=== PATIENT | female | born 1955 | race Caucasian/White ===

== ENCOUNTER 2017-04-20 11:49 | Inpatient (IN) ==
[2017-04-20] MEDS ORDERED: DUONEB (A & A) INH ONE (15:00)
--- NOTE | 2017-04-20 15:19 | Diag Imaging Result Doc PS360 ---
EXAM: CHEST-2 VIEWS HISTORY: dyspnea TECHNIQUE: PA and lateral COMMENT: There is COPD. There are multiple bilateral pulmonary nodules with a large cavitary mass in the left apex. These findings were also present on 12/21/2016. There has been no appreciable change. IMPRESSION: Left upper lobe mass and metastatic disease. COPD. Electronically signed by Mike Piña 04/20/2017 3:17 PM
[2017-04-20 15:26] LABS: MANUAL DIFF NEEDED? NO
[2017-04-20 15:32] LABS: BASO% 0.8 % (0.0-0.8); EOS# 0.09 X1000 (0.0-0.7); EOS% 1.5 % (0.0-10.0); HEMATOCRIT 36.1 % (37.0-47.0); HEMOGLOBIN 11.2 g/dL (12.0-16.0); LYMPH# 1.95 X1000 (1.2-3.4); LYMPH% 32.7 % (20.5-51.1); MCH 25.7 PG (27-31); MONO# 0.56 X1000 (0.11-0.59); MONO% 9.4 % (1.7-9.3); MPV 10.1 FL (7.4-10.4); NEUT% 55.6 % (42.2-75.2); PLT 419 X1000 (130-400); RBC 4.35 XMIL (4.2-5.4)
--- NOTE | 2017-04-20 15:35 | PROVIDER DOCUMENTATION ---
HPI-Respiratory General - General Chief Complaint: Cough Stated Complaint: SOB Time Seen by Provider: 04/20/17 13:09 Source: patient, family Allergies/Adverse Reactions: Patient Allergies Allergy/AdvReac Type Severity Reaction Status Date / Time hydrocodone Allergy NAUSEA Verified 12/21/16 09:18 Home Medications: Home Medication List Medication Instructions Recorded Confirmed Last Taken Type Gabapentin [Neurontin] 300 mg PO BID 05/13/16 12/21/16 12/20/16 History Glipizide 10 mg PO BID 05/13/16 12/21/16 12/20/16 History Levothyroxine [Synthroid] 100 microgm PO DAILY 05/13/16 12/21/16 12/20/16 History Metformin [Glucophage] 1,000 mg PO BID 05/13/16 12/21/16 12/20/16 History Omeprazole [Prilosec] 20 mg PO DAILY@0700 05/13/16 12/21/16 12/20/16 History Propranolol L.a. [Inderal LA] 1 tab PO DAILY 05/13/16 12/21/16 12/20/16 History Simvastatin [Zocor] 80 mg PO HS 05/13/16 12/21/16 12/20/16 History Tiotropium [place] Inhaler 2 puff INH DAILY 05/13/16 12/21/16 12/20/16 History [Spiriva] Ferrous Sulfate [Iron] 27 mg PO DAILY 12/15/16 12/21/16 12/20/16 History Acetaminophen with Codeine 1 each PO Q8H PRN PRN #10 tablet 12/21/16 Unknown Rx [Tylenol with Codeine #3] Azithromycin [Zithromax Z-Ari] 250 mg PO DIRECTED #1 pkg 12/21/16 Unknown Rx Insulin Detemir [Levemir] 40 unit SUBQ DAILY 12/21/16 12/21/16 12/20/16 History Methylprednisolone [Medrol Dosepak] 4 mg PO DIRECTED #1 package 12/21/16 Unknown Rx - History of Present Illness-Resp Nature of Presenting Problem: 62 y/o WF witha PMHx of lung mass, COPD and IDDM that presents to the ER with a one week h/o SOB and productive cough. Sputum is stated to be green in color. Pt reports no aggravating or alleviating factors. ROS is non-contributory. Quality of Pain: reports: none Severity in ED: reports: mild Onset/Duration: reports: 1 week ago Timing: reports: intermittent Cough Quality/Degree: reports: productive cough Episode Frequency: occasional episodes Modifying Factors: improves with: nothing Associated Symptoms: reports: denies symptoms Similar Symptoms Previously?: Yes Review of Systems - Adult - REVIEW OF SYSTEMS - ADULT Constitutional: reports: no symptoms reported Eyes: reports: no symptoms reported Ears, Nose, Mouth & Throat: reports: no symptoms reported Cardiovascular: reports: no symptoms reported Respiratory: reports: cough, shortness of breath Gastrointestinal: reports: no symptoms reported Genitourinary: reports: no symptoms reported Musculoskeletal: reports: no symptoms reported Integumentary: reports: no symptoms reported Neurological: reports: no symptoms reported Psychiatric: reports: no symptoms reported Endocrine: reports: no symptoms reported Hematologic/Lymphatic: reports: no symptoms reported Allergic/Immunologic: reports: no symptoms reported Past History - Adult - PAST MEDICAL HISTORY-ADULT Review of Records: reports: Old Records Reviewed, Nursing Assessment Review, Medications Reviewed Cardiovascular: reports: hyperlipidemia Respiratory: reports: COPD, other (emphysema) Neurological: reports: dementia Endocrine/Immune: reports: thyroid disorder - PRIOR SURGERIES/PROCEDURES Surgical/Procedure History: reports: hysterectomy, other (lung bx) - IMMUNIZATION STATUS Childhood Immunizations: See Nurse Assessment Flu Vaccine: See Nurse Assessment - FAMILY HISTORY Family History: reviewed, not pertinent - SOCIAL HISTORY Smoking: cigarettes, less than 1 pack/day Substance Use: none/never Alcohol Use Frequency: never Physical Exam-General - PHYSICAL EXAM-ADULT Initial Vital Signs Reviewed: Yes - CONSTITUTIONAL General Appearance: appears well, alert. negative: lethargic, obtunded - EYES Eyes: PERRL/EOMI, pink conjunctivae. negative: sclera injected, scleral icterus - HEAD, EARS, NOSE, MOUTH & THROAT HENMT: normocephalic/atraumatic, moist mucous membranes. negative: pharyngeal erythema, tonsillar exudate - NECK Neck: non-tender, full range of motion, supple. negative: C-spine tenderness - RESPIRATORY Respiratory: chest non-tender, lungs clear, normal breath sounds. negative: crackles, rales, rhonchi, stridor, wheezing - CARDIOVASCULAR Cardiovascular: normal peripheral pulses, regular rate, rhythm, no murmur - GASTROINTESTINAL (ABDOMEN) Abdominal Exam: normal bowel sounds, non tender, soft. negative: distended, guarding, rigid, rebound, tenderness - LYMPHATIC Lymphatic: no adenopathy - MUSCULOSKELETAL Back Exam: normal inspection, no CVA tenderness, no vertebral tenderness. negative: muscle spasm, swelling Extremity: normal range of motion, non-tender. negative: swelling, tenderness - SKIN Integumentary: normal color, normal turgor, warm/dry. 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 negative: focal weakness , motor weakness - PSYCHIATRIC Psych/Mental Status: normal mood/affect, normal thought content, normal thought process, oriented x 3. negative: anxious, disheveled, paranoid, tearful Progress - PLAN OF CARE/RESULTS Progress/Plan/Lab Results: Vital Signs - 8 hr 04/20/17 11:51 04/20/17 17:11 04/20/17 17:44 Temperature 98.6 F 97.6 F Pulse Rate 88 88 65 Respiratory Rate 20 20 18 Blood Pressure 149/67 163/72 O2 Sat by Pulse Oximetry 99 98 100 Laboratory Results - last 24 hr 04/20/17 04/20/17 15:20 15:20 WBC 5.96 RBC 4.35 Hgb 11.2 L Hct 36.1 L MCV 83.0 MCH 25.7 L MCHC 31.0 L RDW Std Deviation 18.2 H Plt Count 419 H MPV 10.1 Immature Gran % (Auto) 0.0 Neut % (Auto) 55.6 Lymph % (Auto) 32.7 [place] % (Auto) 9.4 H Eos % (Auto) 1.5 Baso % (Auto) 0.8 Immature Gran # (Auto) 0.00 Neut # (Auto) 3.31 Lymph # (Auto) 1.95 [place] # (Auto) 0.56 Eos # (Auto) 0.09 Baso # (Auto) 0.05 Sodium 141 Potassium 4.2 Chloride 99 Carbon Dioxide 32 Anion Gap 10 BUN 12 Creatinine 0.5 Estimated GFR/1.73 m2 > 60 BUN/Creatinine Ratio 24 Glucose 63 L Calculated Osmolality 279 Calcium 9.8 Total Bilirubin < 0.10 L AST 11 ALT 8 L Alkaline Phosphatase 46 Total Protein 7.6 Albumin 4.5 Globulin 3.1 Albumin/Globulin Ratio 1.5 Orders Category Date Time Status Oxygen Therapy- ED Nursing DIRECTED Care 04/20/17 15:00 Active Saline Loc DIRECTED Care 04/20/17 15:00 Active CHEST-2 VIEWS [RAD] Stat Exams 04/20/17 15:01 Completed THORAX/ABDOMEN/PELVIS [CT] Stat Exams 04/20/17 15:45 Completed CBC WITH ELECTRONIC DIFF [HEME] Stat Lab 04/20/17 15:20 Completed COMPREHENSIVE METABOLIC PANEL [CHEM] Stat Lab 04/20/17 15:20 Completed Albuterol 2.5MG/Ipratrop 0.5MG [Duoneb (A & A)] Med 04/20/17 15:00 Discontinued 3 ml INH NOW ONE Aerosol Treatments Routine Oth 04/20/17 15:00 Completed Aerosol Treatments Stat Oth 04/20/17 15:00 Completed Aerosol Treatments Stat Oth 04/20/17 15:00 Completed Pulse Oximetry Stat Oth 04/20/17 15:00 Completed Result Diagrams: 04/20/17 15:20 04/20/17 15:20 - CT/MRI 1 CT Study: Abdomen, Pelvis, Thorax Impression: Abnormal (Cavitary mass in upper left lobe which has increased in size somewhat. Now with disseminated pulmonary nodules, which questions diagnosis of granulomatous process from bios on 12/15/16. Differential diagnosis includes septic emboli, disseminated granulomatous diseas, or even metastatic disease.) - CONSULTS/PCP/HOSPITALIST Notification #1 *Consult/PCP/Hospitalist*: Dr. Cochran Time Discussed: 18:06 Consult Disposition: Admit (per PSYCHOLOGIST ENGINEERING) Departure - Departure Date of Disposition Decision: 04/20/17 Time of Disposition Decision: 18:05 DIAGNOSIS: Lung mass, Hypoxemia requiring supplemental oxygen Disposition: ADMITTED INPATIENT 09 Certified Medical Emergency: Emergent Condition: Good Referrals and Follow-Ups: None,PCP [Primary Care Provider] - - Critical Care Note This patient required my direct & personal management of CC.: No
[2017-04-20 15:45] LABS: AGAP 10; ALBUMIN 4.5 g/dL (3.5-5.0); ALKALINE PHOSPHATASE 46 U/L (32-104); BUN 12 mg/dL (8-22); CALCIUM 9.8 mg/dL (8.8-10.2); CHLORIDE 99 mmol/L (98-107); COSMO 279; GOT 11 U/L (10-30); GPT 8 U/L (10-36); POTASSIUM 4.2 mmol/L (3.5-5.1); SODIUM 141 mmol/L (136-145); TCO2 32 mmol/L (25-35); TOTAL BILIRUBIN < 0.10 mg/dL (0.20-1.00); TOTAL PROTEIN 7.6 g/dL (6.3-8.3)
--- NOTE | 2017-04-20 17:24 | Diag Imaging Result Doc PS360 ---
EXAM: THORAX/ABDOMEN/PELVIS HISTORY: lung mass TECHNIQUE: CT of the chest with and without contrast; CT of the abdomen and pelvis with intravenous contrast, dose reduction (clarity.) COMMENT: CT of the chest: The current study is compared with that of 12/10/2016. There is a cavitary lesion present in the left upper lobe posteriorly. This was also present on 12/10/2016 but is slightly larger now measuring 5.1 cm in transverse dimension compared to 4.9 cm previously. This abuts the posterior pleura and there may be a loculated pleural fluid collection associated with this. There are a few air bubbles associated with the fluid collection than on the previous study. This lesion was also biopsied previously on 12/15/2016, the results of which indicate a necrotizing granulomatous process. There is generalized emphysematous change. There are numerous bilateral pulmonary nodules. One of the larger is in the right middle lobe laterally on image 68. This was not present at the time the previous study. It measures 11 mm in AP dimension. There are some calcified lesions which have not changed. There is a nodule in the right lower lobe on image 65 which nearly abuts the pleura and measures slightly less than a centimeter in diameter. This was not present on the previous study. There is a pleural-based lesion posteriorly in the left lower lobe on image 66 and 67 which was not present previously. Numerous smaller lesions were not present on the previous examination. There are extensive coronary calcifications. There are calcified nodes in the subcarina and right hilum. No abnormal fluid collections are present. CT of the abdomen with intravenous contrast: There are numerous granulomata are present in the spleen. There is atherosclerotic calcification in the aorta and its branches and there is slight aneurysmal dilatation of the distal abdominal aorta to a maximum AP dimension of 2 cm. There is no evidence of bowel obstruction or appendicitis. There is a small vascular calcification in the central renal sinus on the right. The liver contains some calcified granulomata, otherwise the liver is normal in appearance. The adrenal glands are not enlarged. CT of the pelvis with intravenous contrast: There is been hysterectomy. There is no evidence of free fluid or significant adenopathy. There is vacuum joint phenomenon in the sacroiliac joints and the L5-S1 disc space. IMPRESSION: Cavitary mass in the left upper lobe, which was present but somewhat smaller on 12/10/2016, with numerous pulmonary nodules elsewhere which were not present on 12/10/2016. While the cavitary lesion apparently is granulomatous by pathology from the biopsy of 12/15/2016, this is not clearly the case with the disseminated pulmonary nodules. The differential diagnosis would include septic emboli, disseminated granulomatous disease, or even metastatic disease. Clinical correlation is recommended. Electronically signed by Mike Piña 04/20/2017 5:20 PM
[2017-04-20 19:57] LABS: ALLEN TEST YES; BE 8.4 mmoll (-3.0-3.0); BLOOD TYPE ARTERIAL; DRAW SITE R RADIAL; METHB 1.2 % (0.0-1.5); O2(CT) 15.2 mL/dL (15.0-23.0); PO2(98.6) 100 mmHg (60-100); SAMPLE BLOOD; THB 11.2 g/dL (11.5-17.4); pH(98.6) 7.33 (7.35-7.45)
[2017-04-20 19:58] LABS: MODALITY CANNULA
[2017-04-20 20:00] LABS: PCO2(98.6) 69 mmHg (35-45)
[2017-04-20] MEDS ORDERED: ZOFRAN IV PRN (20:07)
--- NOTE | 2017-04-20 20:16 | HISTORY AND PHYSICAL ---
PRIMARY CARE PROVIDER: MALOU Wright. PRIMARY ROVING TESTER LABORATORY: Dr. Payan in [place]. INFECTIOUS DISEASE DOCTOR: Dr. Lui Anderson. CHIEF COMPLAINT: Shortness of breath. HISTORY OF PRESENT ILLNESS: Ms. Esha Caro is a 62-year-old female with a medical history of COPD who wears 3 L of oxygen at home, diabetes mellitus type 2, hypothyroidism who has also been followed for a left upper lobe mass by Dr. Anderson. Apparently, she has had a biopsy which was benign of this mass. Ms. Esha Caro states that she has been short of breath for the last week. She has had diarrhea for 2 days. She has had chills with a productive green phlegm. She does state that on occasion she will have pain in the back of her neck and in the left upper arm in which she feels this muscular pain happens about 3 times a day. Other complaints, dizziness and today she felt dizzy and she had a blood glucose level in the 30s. On BMP it was 53. Workup included a chest x-ray which revealed the left upper lobe mass and metastatic disease and COPD, although per the patient's report her mass was benign. She also had a chest, abdomen and pelvic CT which revealed a cavitary mass in the left upper lobe, but was smaller back in November, and now has numerous pulmonary nodules which were also not present in November. While the lesion was apparently granulomatous pathology from biopsy in December, this is not the case with the disseminated pulmonary nodules. We will admit her to the medical floor. We will consult Dr. Anderson as he has been following her for the left upper lobe mass and consult Dr. Gomez. PAST MEDICAL HISTORY: Diabetes mellitus type 2, hyperlipidemia, COPD on 3 L home oxygen, hypothyroidism. PAST SURGICAL HISTORY: Left upper lobe mass biopsy December 2016. Apparently this was benign. SOCIAL HISTORY: She smokes half pack per day for 45 years. She denies alcohol or illicit drug use. FAMILY HISTORY: Mother, brother, sister all had heart disease and she had 2 sisters who had diabetes. REVIEW OF SYSTEMS: Fourteen point review of systems were complete and all were negative except for those mentioned in above HPI. ALLERGIES: Hydrocodone. HOME MEDICATIONS: Tylenol #3, azithromycin, iron, Neurontin, glipizide, Levemir , Synthroid, metformin, methylprednisolone, Prilosec, propranolol, Zocor and Spiriva. PHYSICAL EXAMINATION: VITAL SIGNS: Temperature 97.6 degrees, heart rate 65, respiratory rate 18, blood pressure 163/72, O2 saturation 2 L 100%. 5 feet tall, 99 pounds. BMI is 19.3. GENERAL: Ms. Caro is a 62-year-old female who is in no acute distress. She is able to answer questions appropriately. HEENT: Atraumatic, normocephalic. Pupils equal, round, reactive to light. Extraocular movements intact. Mucous membranes moist. NECK: No JVD or carotid bruits noted. CARDIOVASCULAR: S1, S2. Regular rate and rhythm. No rubs, gallops, murmurs. PULMONARY: Clear to auscultation. Bilateral breath sounds. No accessory muscle use or work of breathing noted, on nasal cannula. GI: Soft, nontender, nondistended. Positive bowel sounds x4. EXTREMITIES: No edema noted. +2 dorsalis and radial pulses. NEUROLOGIC: Alert and oriented x4. Moves all extremities equally. SKIN: Warm, dry, intact. LABORATORY DATA: White blood cells 5000, hemoglobin 11, hematocrit 36, platelet count 419,000. Sodium 141, potassium 4.2, BUN 12, creatinine 0.5, glucose 63, bilirubin is less than 0.1, AST 11, ALT 8. IMAGING: Chest x-ray: Left upper lobe mass, metastatic disease. COPD. Chest , abdomen and pelvic CT: A cavitary mass in the left upper lobe which was present, but smaller 12/10/2016, now with numerous pulmonary nodules which were not present on November 2016 imaging. While cavitary lesion apparently was granulomatous by pathology from the biopsy on 12/15/2016, it is not clearly the case with the disseminated pulmonary nodules. Differential diagnoses would be septic emboli, disseminated granulomatous disease or even metastatic disease. ASSESSMENT AND PLAN: 1. Shortness of breath with chronic obstructive pulmonary disease exacerbation. We will do albuterol-Atrovent nebulizers, budesonide nebulizers. Consult Pulmonary and do IV steroids. Continue patient on nasal cannula as she takes 3 L at home. 2. Left upper lobe mass, now with nodular pulmonary nodules. She has been followed by Dr. Anderson for this. She had a pathology that was benign back in November. She had a left upper lobe mass, but no pulmonary nodules and now she has pulmonary nodules. So again, we will reconsult Dr. Anderson and Dr. Gomez for further work up. This also could be what is causing her increasing shortness of breath. 3. Diabetes mellitus type 2. Pattern blood glucoses and sliding scale insulin. 4. Hypothyroidism. Once home medications are verified, we will continue with Synthroid. 5. Hyperlipidemia. Continue statin once home medications are verified. Dictated by MALOU Whitaker for Enzo Khanna MD cc: MALOU Whitaker MD [facility]
[2017-04-20] MEDS: SOLU-MEDROL IV SCH (21:45)
[2017-04-20] MEDS: ROCEPHIN 1 GM/NS 1 GM/50 ML IVPB IV SCH (21:46)
[2017-04-20] MEDS: PULMICORT INH SCH (21:47)
[2017-04-20] MEDS: DUONEB (A & A) INH SCH ×2 (21:47→23:18)
[2017-04-20] MEDS: HUMULIN R SUBQ SCH (21:52)
[2017-04-21] MEDS: DUONEB (A & A) INH SCH ×6 (03:20→22:49)
[2017-04-21] MEDS: SOLU-MEDROL IV SCH ×3 (05:00→20:21)
[2017-04-21] MEDS: PROTONIX PO SCH ×2 (05:32→07:56)
[2017-04-21] MEDS: HUMULIN R SUBQ SCH ×5 (06:56→20:21)
[2017-04-21 07:02] LABS: MANUAL DIFF NEEDED? NO
[2017-04-21 07:08] LABS: BASO% 0.7 % (0.0-0.8); EOS# 0.04 X1000 (0.0-0.7); EOS% 0.7 % (0.0-10.0); HEMOGLOBIN 10.2 g/dL (12.0-16.0); LYMPH# 1.69 X1000 (1.2-3.4); LYMPH% 28.5 % (20.5-51.1); MCH 25.6 PG (27-31); MCHC 30.9 g/dL (33-37); MCV 82.9 FL (81-99); MONO# 0.32 X1000 (0.11-0.59); MONO% 5.4 % (1.7-9.3); MPV 10.2 FL (7.4-10.4); NEUT% 64.7 % (42.2-75.2); PLT 364 X1000 (130-400); RBC 3.98 XMIL (4.2-5.4)
--- NOTE | 2017-04-21 07:31 | CONSULTATION ---
DATE OF CONSULTATION: 04/21/2017 REFERRING PHYSICIAN: Dr. Cochran. CHIEF COMPLAINT: Shortness of breath. HISTORY OF PRESENT ILLNESS: This is a 62-year-old, female with a past medical history of COPD, diabetes, and hypothyroidism that presented to the hospital with complaints of shortness of breath. She was admitted with findings of a left upper lobe mass with metastatic disease and COPD. She was also found to have multiple pulmonary nodules that were not present in November. She has had some chills with a productive cough with green phlegm. She denies any abdominal pain, nausea, vomiting, or diarrhea. REVIEW OF SYSTEMS: A 10-point review of systems was conducted. Pertinents are as noted in the HPI, otherwise noncontributory. PAST MEDICAL HISTORY: As mentioned in the HPI, otherwise noncontributory. PAST SURGICAL HISTORY: Left upper lobe mass biopsy. SOCIAL HISTORY: Smokes half pack per day and has for 45 years. She denies use of alcohol or illicit drugs. FAMILY HISTORY: Notable for heart disease and diabetes. ALLERGIES: Hydrocodone. ACTIVE MEDICATIONS: Tylenol, DuoNeb, Pulmicort, Humulin R, Solu-Medrol, Protonix. PHYSICAL EXAMINATION: Vital Signs: Temperature 98.1, heart rate 81, respiratory rate 26, blood pressure 154/67, oxygen saturation 100%. General: Awake, alert. Sitting up in bed. No acute distress noted. HEENT: Normocephalic and atraumatic. PERRL. Cardiovascular: Regular rate and rhythm. S1-S2 present. Chest: Reduced entry. Abdomen: Soft, nontender, nondistended. Bowel sounds present in all quadrants. Extremities: Distal pulses palpable. Trace pedal edema bilaterally. Skin: Warm, dry, and intact. Neurologic: Alert and oriented x3. No focal deficits. LABS AND INVESTIGATIONS: WBCs 5.96, RBCs 4.35, hemoglobin 11.2, hematocrit 36.1 , platelet count 419,000. Sodium 141, potassium 4.2, chloride 99, CO2 32, anion gap 10, BUN 12, creatinine 0.5, glucose is 63. Blood gas reveals a pH of 7.33, pCO2 of 69, PO2 of 100, HCO3 of 31.5, base excess 8.4, saturated oxygen 95%. Chest x-ray performed on 04/20/2017 shows left upper lobe mass and metastatic disease with COPD. ASSESSMENT AND PLAN: This is a 62-year-old, female with a past medical history as mentioned in the history of present illness who was admitted to the hospital with a left upper lobe mass that is larger than it was in November and is accompanied by pulmonary nodules as well as shortness of breath secondary to a chronic obstructive pulmonary disease exacerbation. Continue inhaled bronchodilators, intravenous steroids, gastrointestinal prophylaxis, pattern fingersticks and sliding scale insulin for diabetes. Further recommendations pending diagnostic studies. History of FREDDY with difficulty to comply with treatment as discusses with ID. Likely the current radiologic findings are related. Thank you for the courtesy of this consult. Dictated by MALOU Hayes for Karrie Gomez MD cc: MALOU Hayes MD MTDD
[2017-04-21 07:37] LABS: AGAP 10; ALBUMIN 3.8 g/dL (3.5-5.0); ALKALINE PHOSPHATASE 42 U/L (32-104); BUN 15 mg/dL (8-22); CALCIUM 9.1 mg/dL (8.8-10.2); CHLORIDE 94 mmol/L (98-107); COSMO 283; GOT 12 U/L (10-30); GPT 8 U/L (10-36); POTASSIUM 4.8 mmol/L (3.5-5.1); SODIUM 137 mmol/L (136-145); TCO2 33 mmol/L (25-35); TOTAL BILIRUBIN < 0.10 mg/dL (0.20-1.00); TOTAL PROTEIN 6.8 g/dL (6.3-8.3)
[2017-04-21] MEDS: PULMICORT INH SCH ×2 (08:02→19:23)
[2017-04-21 09:01] LABS: FREE T4 1.16 ng/dL (0.93-1.70)
[2017-04-21 09:09] LABS: HEMOGLOBIN A1C 7.6 % (4.8-6.0)
--- NOTE | 2017-04-21 09:29 | CONSULTATION ---
DATE OF CONSULTATION: 04/21/2017 CONCLUSION: The patient was admitted to the hospital because of increasing dyspnea and sputum production. She has been coughing and bringing up more sputum. The patient has a history of having mycobacterium avium complex pulmonary infection. She was having nausea with her medications, so she started taking them every other day instead of daily as they were prescribed. I am uncertain whether the patient's worsening of her pulmonary function is due to mycobacterium avium complex, which has become resistant to the medications because the patient was only taking them every other day, or whether she has developed a superinfection with another organism. RECOMMENDATIONS: I have ordered sputum for routine culture and sensitivity, AFB smear and culture, and fungal culture. I think is reasonable to start the patient on an antibiotic, such as Rocephin, that has been already started. DISCUSSION: The patient has been taking medicines for mycobacterium avium complex infection of the lungs. She was having nausea from it and on her own she started taking the medicine is every other day and she was able to tolerate them better. She tells me in the past week she has been having increased dyspnea and cough, which is productive of sputum. The patient' s CT scan shows a cavitary mass in the upper lobe, which was present on an earlier CAT scan in November of this year. A fine needle aspiration of the lesion was done at that time and it showed necrotizing granulomatous inflammation from the biopsy. Cultures from the patient's lungs have grown mycobacterium avium complex. Dr. Mike Piña, who read the CT scan, is concerned that the patient has disseminated pulmonary nodules, which might be caused by her mycobacterium avium complex, but he is also concerned that they may be septic emboli or even metastatic disease. Patient's CBC shows a white count of 5920, hemoglobin 10.2, and platelet count 364,000 creatinine 0.5. GFR is greater than 60. Liver function studies are normal. The patient' s CT scan of the abdomen showed numerous granulomata that are present in the spleen. A CT scan of the pelvis showed no evidence of free fluid or adenopathy. CT scan of the abdomen the liver contains calcified granulomata. PAST MEDICAL HISTORY/REVIEW OF SYSTEMS: HEENT: She denies difficulty seeing or hearing Neck: No stiffness. Respiratory: See above. Gastrointestinal: She has been having nausea, which she attributes to her medicines she is taking for mycobacterium avium complex. Genitourinary: No dysuria or flank pain. Neurologic: No seizures or loss of motor or sensory function. Immunologic: The patient has been anemic for awhile, but she does have a bleeding tendency. Endocrine: The patient does have diabetes but not thyroid disease. [employer] history: She is a 5, para 5, AB 0. She has had a hysterectomy. PREVIOUS HOSPITALIZATIONS AND OPERATIONS: She has had labor and deliveries, hysterectomy, and bladder repair. MEDICAL DISEASES: Positive for hypothyroidism, cataract disease, nephrolithiasis, diabetes, gastroesophageal reflux disease, hyperlipidemia, severe chronic obstructive pulmonary disease, and cigarette abuse. The patient also has hyperlipidemia. INFECTIOUS DISEASE HISTORY: Positive for mycobacterium avium complex pneumonia , other types of pneumonia, bronchitis, and sinusitis. FAMILY HISTORY: Positive for diabetes mellitus, hypertension, cancer, and myocardial infarction. SOCIAL HISTORY: The patient is . She lives with her daughter. She is disabled. She [place] for pets[place] ALLERGIES: Her chart lists allergies to hydrocodone. HOME MEDICATIONS: Include the following: Azithromycin, rifampin, ethambutol, Tylenol with codeine, Neurontin, iron, Levemir, glipizide, Synthroid, Glucophage, Inderal, Prilosec, Zocor, and Spiriva. PHYSICAL EXAMINATION: Vital Signs: Temperature is 98.1 degrees, pulse 81, respirations are 22, blood pressure 154/67. The patient weighs 103 pounds. General Appearance: Generally, this is an ill-appearing middle-aged female. She does seem to be short of breath, even at rest and she is coughing quite a bit. Head eyes, ears, nose, and throat: She can hear my spoken words and see near objects. No drainage noted from the nose or ears. There are no white patches on the tongue. Neck: No meningismus. Thorax: Increased AP diameter of the chest. Lungs: There were bilateral rhonchi. No wheezes. I did not hear any rales. Cardiovascular: Heart rate was regular. Peripheral pulses are palpable. Abdomen: Soft and nontender. Neurologic: Patient is awake. She can move her extremities. There is no tremor. Her sensation was intact to touch. Her memory, as regarding her medical history is good. Integument: No rash noted. Thank you for the consultation. cc: Lui Anderson MD MTDD
--- NOTE | 2017-04-21 13:22 | PROGRESS NOTE ---
DATE: 04/21/2017 SUBJECTIVE: This patient states that she is feeling much better. She is still complaining of mild shortness of breath. She denies nausea, vomiting. No diarrhea. No constipation. She is still having cough. OBJECTIVE: Vital Signs: Temperature 98 degrees, pulse 81, respiratory rate 22, blood pressure 137/74, oxygen saturation 98 on 3 L of nasal cannula. HEENT: Head normocephalic. No trauma. PERRLA. Neck: Supple. No JVD. No masses. Central trachea. Cardiovascular: RRR. No murmurs. Chest: Clear to auscultation. Mild rhonchi mostly at the bases. Abdomen: Soft, nontender, nondistended. No hepatosplenomegaly. Extremities: No edema. No clubbing. No cyanosis. Neurological: The patient is alert and oriented x3. No focal neurological deficits. LABORATORY: WBC 5.9, hemoglobin 10.2, hematocrit 33, platelet 364,000. Sodium 137, potassium 4.8, chloride 94, bicarbonate 33, BUN 15, creatinine 0.5, glucose 241, calcium 9.1. ASSESSMENT AND PLAN: 1. COPD exacerbation. Continue with the same management for now. Pulmonary Department is following this patient. This patient is getting better symptomatically. 2. Cavitary mass in the left upper lobe, this was present before but was smaller. Infectious Disease Department and Pulmonary Department are following this patient. Pending lab work and reports. 3. Type 2 diabetes. I will start this patient on her home medications, she is on insulin detemir, and also will continue with the pattern of blood sugar and sliding scale insulin. 4. Hypothyroidism. Continue with levothyroxine. 5. Dyslipidemia. Continue with simvastatin. cc: Enzo Khanna MD
--- NOTE | 2017-04-21 18:47 | ECHO REPORT ---
ORDER DATE: 04/21/2017 INTERPRETING PHYSICIAN: Dr. Mahan REQUESTING PHYSICIAN: CLINICAL INDICATIONS: A 62-year-old female with shortness of breath, diarrhea, COPD. M-MODE MEASUREMENTS: Right ventricle: 3.0 cm. Left ventricle end diastole: 4.0 cm. Left ventricle end systole: 2.4 cm. Posterior wall: 0.8 cm. Interventricular septum: 0.8 cm. Left atrium: 3.5 cm. Aortic root: 3.2 cm. SUMMARY OF 2-DIMENSIONAL IMAGING: The left ventricular function is normal. Ejection fraction estimated at 62%. No wall motion abnormality is noted. The chamber is not dilated. The right ventricle is normal. The atria appear to be normal. The mitral valve is normal. Color flow mapping indicates trace regurgitation. Pulse wave Doppler of mitral inflow shows reversal of the E and the A wave. The ratio is 0.6. Tissue Doppler of septal and lateral mitral annulus averages 6.5 cm per second. The pulse wave Doppler of pulmonary venous flow is normal. There is no diastolic dysfunction. The aortic valve looks normal. Color flow mapping unremarkable. The pulmonic valve looks normal. Color flow mapping unremarkable. The tricuspid valve looks normal. Color flow mapping unremarkable. The inferior vena cava is not dilated. There is no pericardial effusion, masses or thrombus. IMPRESSION: In summary, this study shows: 1. Excellent left ventricular systolic function. 2. No evidence of any significant valvular abnormality. 3. No diastolic dysfunction. 4. No pulmonary hypertension. Clinical correlation recommended. cc: MD Rubina Chowdary CRNP
[2017-04-21] MEDS: TYLENOL PO PRN (20:21)
[2017-04-21] MEDS: ROCEPHIN 1 GM/NS 1 GM/50 ML IVPB IV SCH (20:21)
[2017-04-21] MEDS: ZOCOR PO SCH (20:21)
[2017-04-21] MEDS: NEURONTIN PO SCH (20:21)
[2017-04-22] MEDS: DUONEB (A & A) INH SCH ×6 (03:50→22:52)
[2017-04-22 04:54] LABS: ALLEN TEST YES; BE 8.5 mmoll (-3.0-3.0); BLOOD TYPE ARTERIAL; DRAW SITE R RADIAL; O2(CT) 13.5 mL/dL (15.0-23.0); PO2(98.6) 84 mmHg (60-100); SAMPLE BLOOD; SAO2 98.5 % (95.0-100.0); THB 9.9 g/dL (11.5-17.4)
[2017-04-22 05:05] LABS: MODALITY BI PAP; PCO2(98.6) 56 mmHg (35-45)
[2017-04-22] MEDS: SOLU-MEDROL IV SCH ×2 (06:05→15:15)
[2017-04-22] MEDS: PROTONIX PO SCH (06:06)
[2017-04-22] MEDS: SYNTHROID PO SCH (06:06)
[2017-04-22] MEDS: HUMULIN R SUBQ SCH ×4 (06:06→20:26)
[2017-04-22 06:58] LABS: MANUAL DIFF NEEDED? NO
[2017-04-22 07:13] LABS: BASO% 0.3 % (0.0-0.8); EOS# 0.02 X1000 (0.0-0.7); EOS% 0.3 % (0.0-10.0); HEMATOCRIT 33.1 % (37.0-47.0); HEMOGLOBIN 10.4 g/dL (12.0-16.0); IMM GRAN# 0.02 X1000 (0.0-0.04); IMM GRAN% 0.3 % (0.0-0.5); LYMPH# 2.11 X1000 (1.2-3.4); MCH 25.7 PG (27-31); MCHC 31.4 g/dL (33-37); MCV 81.7 FL (81-99); MONO% 8.5 % (1.7-9.3); MPV 10.4 FL (7.4-10.4); NEUT% 60.6 % (42.2-75.2); PLT 390 X1000 (130-400); RBC 4.05 XMIL (4.2-5.4)
[2017-04-22 07:26] LABS: AGAP 12; BUN 19 mg/dL (8-22); CALCIUM 9.6 mg/dL (8.8-10.2); CHLORIDE 92 mmol/L (98-107); COSMO 286; POTASSIUM 4.4 mmol/L (3.5-5.1); SODIUM 136 mmol/L (136-145); TCO2 32 mmol/L (25-35)
[2017-04-22] MEDS: PULMICORT INH SCH ×2 (07:41→19:24)
[2017-04-22] MEDS: NEURONTIN PO SCH ×2 (08:20→20:04)
[2017-04-22] MEDS ORDERED: LEVEMIR SUBQ SCH ×2 (09:00→15:24)
--- NOTE | 2017-04-22 15:42 | PROGRESS NOTE ---
DATE: 04/22/2017 SUBJECTIVE: Today, Ms. Caro refers to be doing a lot better. Continues to cough with some expectoration. OBJECTIVE: Vital signs: Blood pressure is 131/73, pulse of 91, respirations 20, temperature 98.2 degrees. General: Ms. Caro is in bed, not in any distress. HEENT: Mucosa pink and moist. Anicteric. Acyanotic. Neck: Supple. Chest: Air entry is bilaterally reduced. There is a prolonged expiratory phase of respiration. No crepitations. No rhonchi. Cardiovascular: Regular rate and rhythm. Abdomen: Soft. Extremities: No pedal edema. Central Nervous System: Patient is alert and oriented x4. LABORATORY DATA: WBC 7.03, hemoglobin is 10.4, platelet count of 390,000. Chemistry is reviewed and completely normal except for glucose of 307. Microbiology data: Sputum has no growth, was showing some Gram-negative rods. CURRENT MEDICATIONS: 1. Albuterol nebulizations. 2. Gabapentin. 3. Insulin detemir 30 units subcutaneous. 4. Sliding scale. 5. Levothyroxine. 6. Simvastatin. ASSESSMENT: 1. Left upper lobe cavitary lesion with multiple bilateral nodules suspicious to be the same Mycobacterium avium complex infection, since patient was not taking her medication as prescribed. Patient is currently on IV antibiotics. She is being followed up by Dr. Anderson. 2. Diabetes mellitus. Glucose is slightly worse, I guess because of the current steroids. 3. Chronic obstructive pulmonary disease exacerbation. We will continue with the therapy. Patient seems to be doing a lot better. 4. Hypothyroidism. Will continue with levothyroxine. 5. Dyslipidemia. So, in general, I think Ms. Caro is doing a lot better. She is currently on IV ceftriaxone. We are going to switch her steroids to oral, since she seems to have improved significantly with the COPD exacerbation. Continue with incentive spirometer and get Physical Therapy to work with her. I think by tomorrow we should probably be able to discharge her, once we have Infectious Disease see her and place her on medication for the Mycobacterium avium complex. cc: Miguel Toledo MD
[2017-04-22] MEDS: TYLENOL PO PRN (19:46)
[2017-04-22] MEDS: ROCEPHIN 1 GM/NS 1 GM/50 ML IVPB IV SCH (20:04)
[2017-04-22] MEDS: ZOCOR PO SCH (20:04)
[2017-04-23] MEDS: DUONEB (A & A) INH SCH ×3 (03:47→11:18)
[2017-04-23 04:13] LABS: ALLEN TEST YES; BE 7.8 mmoll (-3.0-3.0); BLOOD TYPE ARTERIAL; DRAW SITE R RADIAL; METHB 1.2 % (0.0-1.5); O2(CT) 15.4 mL/dL (15.0-23.0); PO2(98.6) 114 mmHg (60-100); SAMPLE BLOOD; SAO2 98.8 % (95.0-100.0); THB 11.2 g/dL (11.5-17.4); pH(98.6) 7.36 (7.35-7.45)
[2017-04-23 04:14] LABS: MODALITY CANNULA; PCO2(98.6) 62 mmHg (35-45)
[2017-04-23] MEDS: HUMULIN R SUBQ SCH ×2 (06:27→11:43)
[2017-04-23] MEDS: PROTONIX PO SCH (06:27)
[2017-04-23] MEDS: SYNTHROID PO SCH (06:27)
[2017-04-23] MEDS: PULMICORT INH SCH (07:59)
[2017-04-23 08:10] VITALS: BP 122/65
[2017-04-23 08:14] LABS: AGAP 12; BUN 16 mg/dL (8-22); CALCIUM 9.8 mg/dL (8.8-10.2); CHLORIDE 94 mmol/L (98-107); COSMO 285; POTASSIUM 4.2 mmol/L (3.5-5.1); SODIUM 138 mmol/L (136-145); TCO2 32 mmol/L (25-35)
[2017-04-23] MEDS: NEURONTIN PO SCH (08:27)
[2017-04-23] MEDS ORDERED: PREDNISONE PO SCH (09:00)
--- NOTE | 2017-04-23 13:24 | PROGRESS NOTE ---
DATE: 04/23/2017 PRESENT ILLNESS: The patient has an underlying Mycobacterium avium complex pulmonary infection. She came in with an acute worsening of her dyspnea and cough. Her sputum is growing a Gram- negative lázaro. I think that most likely the patient has developed a pneumonia on top of her Mycobacterium avium complex pulmonary infection. MEDICATIONS: The patient currently is receiving Rocephin intravenously. PHYSICAL EXAMINATION: Vital Signs: Temperature is 98.4 degrees, pulse 77, respirations 18, blood pressure 122/65. General: This is a chronically ill-appearing, middle-aged female. She is in no acute distress. Lungs: Clear to auscultation. Cardiovascular: Regular heart rate. Abdomen: Soft and nontender. Neurologic: She is alert. She can move her extremities. There is no tremor. LABORATORY AND X-RAY: There is no new x-ray. The patient's CBC shows a white count of 7030, hemoglobin 10.4, and platelet count 390,000. Creatinine 0.6. GFR is greater than 60. Blood gases show a pH of 7.36, a PO2 of 114, and a pCO2 of 62. ASSESSMENT AND PLAN: As mentioned above, the patient has a Mycobacterium avium complex infection. This has been complicated by a Gram-negative lázaro pneumonia. My plan is to continue her medicines for Mycobacterium avium complex and, in addition, send her home on Levaquin 500 mg p.o. daily for 14 days. The patient already has an appointment to see me in the office in May. COMORBIDITIES: She has COPD with gastroesophageal reflux disease. She also smokes cigarettes. cc: Lui Anderson MD
[2017-04-23] MEDS ORDERED: VENTOLIN HFA INH PRN (13:28)
--- NOTE | 2017-04-23 18:15 | DISCHARGE SUMMARY ---
ADMISSION DATE: 04/20/2017 DISCHARGE DATE: 04/23/2017 DISCHARGE DIAGNOSES: 1. Left upper lobe cavitary lesions with multiple bilateral nodules suspicious for the same infection with mycobacterium avium complex. 2. Diabetes mellitus. 3. Chronic obstructive pulmonary disease exacerbation. 4. Hypothyroidism. 5. Dyslipidemia. 6. Known history of mycobacterium avium complex. CONSULTS: 1. Infectious Disease Department Dr. Anderson. 2. Pulmonary Department Dr. Gomez. HOSPITAL COURSE: 62-year-old female with a past medical history of COPD on home oxygen, type 2 diabetes, hypothyroidism and known history of mycobacterium avium complex. Followup by Dr. Anderson as an outpatient. Presented to the emergency department and admitted on 04/20/2017 secondary to shortness of breath for 1 week. Apparently also this patient had diarrhea for 2 days, associated with chills and productive green phlegm, dizziness and hypoglycemia. Workup included a chest x-ray, which revealed a left upper mass and multiple nodule lesions and COPD changes. As per the patient the report of her mass was benign. We did a CT scan that showed cavitary mass in the left upper lobe that was smaller back in November and now has numerous pulmonary nodules which were also not present in November. Infectious Disease Department and Pulmonary Department have been consulted. We started treating this patient because of COPD exacerbation and also we started this patient on antibiotics. Next day the patient was feeling much better. She was improving on a daily basis. Infectious Disease Department Dr. Anderson monitored this patient and today we decided to discharge this patient with a strict followup by him and also by her primary care doctor. At the moment of discharge, this patient was on a stable medical condition, ambulating and tolerating p.o. No fever, no chills and breathing fine. She will continue with home oxygen. The patient states that she stopped taking her medication for the mycobacterium avium complex as prescribed because she was getting nauseated. She was instructed to go back again and take as prescribed. DISCHARGE MEDICATIONS: Azithromycin 250 mg p.o. daily. Ethambutol 400 mg p.o. daily. Rifampin 450 mg daily. Acetaminophen with codeine 1 tablet p.o. q.4 hours p.r.n. pain. Gabapentin 300 mg p.o. b.i.d. Ferrous sulfate 27 mg p.o. daily. Insulin detemir 30 units subcutaneous daily. Levothyroxine 100 mcg p.o. daily. Metformin 1000 mg p.o. b.i.d. Propranolol 1 tablet p.o. daily. Omeprazole 20 mg p.o. daily. Simvastatin 80 mg p.o. at bedtime. Spiriva 1 puff inhaled daily. Prednisone 20 mg p.o. daily for 1 week and then taper down until stopped. Levofloxacin 500 mg p.o. daily. Albuterol sulfate inhaler 2 puffs inhaler inhaled q.6 hours p.r.n. shortness of breath. Glipizide has been stopped because of hypoglycemia. PHYSICAL EXAM: Vital Signs: Temperature 98.4 degrees, pulse 77, respiratory rate 18, blood pressure 122/65, oxygen saturation 99 on 3 L of nasal cannula. HEENT: Head normocephalic. No trauma. PERRLA. Neck: Supple. No JVD. No masses. Central trachea. Chest: Bilateral crepitus, generalized, no wheezing, no rales. Abdomen: Soft, nontender, nondistended. No hepatosplenomegaly. Extremities: No edema. No clubbing. No cyanosis. Neurological: The patient is alert and oriented x3. No focal neurological deficits. LABORATORY: Sodium 138, potassium 4.2, chloride 94, bicarbonate 32, BUN 16, creatinine 0.6. Glucose 236. Calcium 9.8. FOLLOWUP: By her primary care doctor in 1 week and follow up with Dr. Anderson from Infectious Disease as scheduled. Time discharging this patient 45 minutes. cc: Enzo Khanna MD
[2017-04-24] MEDS ORDERED: SPIRIVA INH SCH (07:30)
[2017-04-24] MEDS ORDERED: GLUCOTROL PO SCH (09:00)
== END 2017-04-23 15:23 | disposition home or self-care (01) ==
LOC: ED 11:49 → SUATTDRO 19:43 → 3N 19:43
PROVIDERS: ATTEND Internal Medicine